=== PATIENT | male | born 1950 | race African-American/Black ===

== ENCOUNTER 2018-08-12 14:23 | Emergency (ER) | payer SELFPAY ==
[~2018-08-12] VITALS: Ht 172.7 cm; Wt 74.8 kg
[2018-08-12 14:23] VITALS: BP 145/75
--- NOTE | 2018-08-12 14:23 | NUR ---
ED Nurse Note: PT BROUGHT IN BY AMBULANCE FROM STREET. AOX4. PT C/O GENERALIZED WEAKNESS, WEAK GAIT, AND DYSURIA X 3 DAYS. PT ALSO C/O LEFT FOOT PAIN, 10/10 X 3 DAYS. PT DENIES TRAUMA OR INJURY. CIRCULATION AND SENSATION INTACT, CAP REFILL < 3 SECONDS, MUSCLE STRENGTH 5/5 OF BILATERAL FEET, SKIN DRY AND INTACT.
[2018-08-12] MEDS ORDERED: NKM (14:24)
--- NOTE | 2018-08-12 14:25 | NUR ---
ED Nurse Note: MINI COG STARTED AT TRIAGE. PT ASKED TO REMEMBER 3 WORDS: BANANA, CHAIR, AND SUNRISE. PT WAS ALSO ASKED TO DRAW 9 O'CLOCK ON MINI COG FORM AND WAS ABLE TO CORRECTLY DRAW THE TIME.
[2018-08-12] MEDS ORDERED: Ketorolac 30mg Inj IV ONE (14:30)
--- NOTE | 2018-08-12 14:30 | Emergency Room Report ---
History of Present Illness General Chief Complaint: Generalized Weakness Source: Patient, EMS Present Illness HPI Patient presents with generalized weakness. He states this is been worsening over the last few days, at least a week. He also has bilateral foot pain but worse in the left foot. He denies any trauma. He's not been eating the last few days. He states his been having a lot of discharge from his nose and occasionally vomiting up phlegm. He denies any chest pain or abdominal pain. Denies fevers or chills. EMS was called by a concerned passerby. He rates the pain in his left foot 10/10, aching both in the first metatarsal area and also across the dorsum. It does not radiate to the leg. Patient also complains about dysuria. He denies any hematuria. No headache, rashes, abdominal pain, change in bowels, back pain or other extremity pain. He states it has been several years since he was last admitted to hospital. He does not remember why. He denies depression and suicidal ideation. Allergies: Coded Allergies: No Known Allergies (Unverified , 08/12/18) Patient History Past Medical History: see triage record Social History: Reports: smoking, alcohol use; Denies: drug use Social History Narrative homeless Reviewed Nursing Documentation: PMH: Agreed; PSxH: Agreed Nursing Documentation-PMH Past Medical History: No Stated History Review of Systems All Other Systems: negative except mentioned in HPI Physical Exam Vital Signs Date Time Temp Pulse Resp B/P (MAP) Pulse Ox O2 Delivery O2 Flow Rate FiO2 08/12/18 14:19 98.2 74 16 150/77 99 Room Air Sp02 EP Interpretation: reviewed, normal General Appearance: well appearing, no apparent distress, GCS 15, other - Somewhat disheveled Head: normocephalic, atraumatic Eyes: bilateral eye PERRL, bilateral eye Scleral Injection ENT: moist mucus membranes - Poor dentition Neck: full range of motion, supple, no bony tend Respiratory: chest non-tender, lungs clear, normal breath sounds Cardiovascular #1: regular rate, rhythm Cardiovascular #2: 2+ radial (R) Gastrointestinal: normal inspection, normal bowel sounds, non tender, no mass, non-distended Musculoskeletal: back normal, normal range of motion, no calf tenderness, pelvis stable, other - bunion deformity bilat, worse L Neurologic: alert, oriented x3, grossly normal Psychiatric: mood/affect normal, no suicidal/homicidal ideation Skin: normal inspection, warm/dry, other - callous formation balls of feet, no significant erythema feet Medical Decision Making Diagnostic Impression: Primary Impression: Episode of generalized weakness Additional Impressions: Alcohol abuse UTI (urinary tract infection) Qualified Codes: N39.0 - Urinary tract infection, site not specified Foot pain, left ER Course Patient presents with weakness and foot pain. Differential includes brain bleed , electrolyte normality, acute myocardial infarction, occult infection amongst others. The patient will be evaluated with EKG, chest x-ray, CT the head and labs. He'll be treated with gentle IV hydration and a dose of Toradol. EKG without injury. Chest x-ray no infiltrates. CBC with normal white count slight anemia. CMP with mild renal insufficiency. Normal uric acid. Minimally elevated CPK. Blood alcohol 5. Urine tox positive for THC. Pyuria. CT of the head with involutional changes. Rocephin is given. Patient is reevaluated and states the pain is well controlled. Discussion of outpatient resources including clinics and shelters. Patient states that he wants to be discharged at this time. Patient stable for outpatient observation and treatment. Laboratory Tests Test 08/12/18 14:34 White Blood Count 5.0 K/UL (4.8-10.8) Red Blood Count 3.65 M/UL (4.70-6.10) L Hemoglobin 12.1 G/DL (14.2-18.0) L Hematocrit 37.1 % (42.0-52.0) L Mean Corpuscular Volume 102 FL (80-99) H Mean Corpuscular Hemoglobin 33.2 PG (27.0-31.0) H Mean Corpuscular Hemoglobin Concent 32.6 G/DL (32.0-36.0) Red Cell Distribution Width 11.3 % (11.6-14.8) L Platelet Count 263 K/UL (150-450) Mean Platelet Volume 6.3 FL (6.5-10.1) L Neutrophils (%) (Auto) 60.4 % (45.0-75.0) Lymphocytes (%) (Auto) 20.9 % (20.0-45.0) Monocytes (%) (Auto) 5.1 % (1.0-10.0) Eosinophils (%) (Auto) 11.2 % (0.0-3.0) H Basophils (%) (Auto) 2.4 % (0.0-2.0) H Prothrombin Time 10.4 SEC (9.30-11.50) Prothrombin Time INR 1.0 (0.9-1.1) PTT 27 SEC (23-33) Urine Color Yellow Urine Appearance Slightly cloudy Urine pH 5 (4.5-8.0) Urine Specific [place] 1.020 (1.005-1.035) Urine Protein 2+ (NEGATIVE) H Urine Glucose (UA) Negative (NEGATIVE) Urine Ketones Negative (NEGATIVE) Urine Blood 2+ (NEGATIVE) H Urine Nitrite Negative (NEGATIVE) Urine Bilirubin Negative (NEGATIVE) Urine Urobilinogen 1 MG/DL (0.0-1.0) H Urine Leukocyte Esterase 1+ (NEGATIVE) H Urine RBC 10-15 /HPF (0 - 0) H Urine WBC 20-30 /HPF (0 - 0) H Urine Squamous Epithelial Cells Few /LPF (NONE/OCC) Urine Bacteria Few /HPF (NONE) Sodium Level 142 MMOL/L (136-145) Potassium Level 3.9 MMOL/L (3.5-5.1) Chloride Level 105 MMOL/L (98-107) Carbon Dioxide Level 27 MMOL/L (21-32) Anion Gap 10 mmol/L (5-15) Blood Urea Nitrogen 25 mg/dL (7-18) H Creatinine 1.3 MG/DL (0.55-1.30) Estimate Glomerular Filtration Rate 54.6 mL/min (>60) Glucose Level 114 MG/DL (74-106) H Uric Acid 5.3 MG/DL (2.6-7.2) Calcium Level 9.0 MG/DL (8.5-10.1) Total Bilirubin 0.3 MG/DL (0.2-1.0) Aspartate Amino Transferase (AST) 30 U/L (15-37) Alanine Aminotransferase (ALT) 30 U/L (12-78) Alkaline Phosphatase 76 U/L (46-116) Total Creatine Kinase 582 U/L (26-308) H Troponin I 0.006 ng/mL (0.000-0.056) Pro-B-Type Natriuretic Peptide 147 pg/mL (0-125) H Total Protein 6.8 G/DL (6.4-8.2) Albumin 3.2 G/DL (3.4-5.0) L Globulin 3.6 g/dL Albumin/Globulin Ratio 0.9 (1.0-2.7) L Lipase 169 U/L (73-393) Urine Opiates Screen Negative (NEGATIVE) Urine Barbiturates Screen Negative (NEGATIVE) Phencyclidine (PCP) Screen Negative (NEGATIVE) Urine Amphetamines Screen Negative (NEGATIVE) Urine Benzodiazepines Screen Negative (NEGATIVE) Urine Cocaine Screen Negative (NEGATIVE) Urine Marijuana (THC) Screen Positive (NEGATIVE) H Serum Alcohol 5 mg/dL EKG Diagnostic Results Rate: normal Rhythm: NSR ST Segments: no acute changes - + u waves Rhythm Strip Diag. Results EP Interpretation: yes Rhythm: NSR, no PVC's, no ectopy Chest X-Ray Diagnostic Results Chest X-Ray Diagnostic Results : Chest X-Ray Ordered: Yes # of Views/Limited/Complete: 1 View Indication: Other EP Interpretation: Yes Interpretation: no consolidation, no effusion, no pneumothorax Impression: No acute disease Electronically Signed by: Electronically signed by Honorio Deshpande MD Other X-Ray Diagnostic Results Other X-Ray Diagnostic Results : X-Ray ordered: Left foot # of Views/Limited Vs Complete: 3 View Indication: Pain EP Interpretation: Yes Interpretation: no dislocation, no fractures, other - Bunion deformity and degenerative joint disease Impression: Other Electronically Signed by: Electronically signed by Honorio Deshpande MD CT/MRI/US Diagnostic Results CT/MRI/US Diagnostic Results : Imaging Test Ordered: head Impression involutional changes, sinus disease Last Vital Signs Date Time Temp Pulse Resp B/P (MAP) Pulse Ox O2 Delivery O2 Flow Rate FiO2 08/12/18 16:59 98.6 70 14 124/78 98 Room Air Status: improved Disposition: HOME, SELF-CARE Condition: Improved Scripts Ibuprofen* (MOTRIN*) 600 Mg Tablet 600 MG ORAL Q6H PRN for For Pain, #20 TAB Prov: Hoonrio Deshpande MD 08/12/18 Nitrofurantoin Monohyd/M-Cryst* (MACROBID 100 MG*) 100 Mg Capsule 100 MG ORAL EVERY 12 HOURS, #14 CAP Prov: Honorio Deshpande MD 08/12/18 Honorio Deshpande MD Aug 12, 2018 14:30
--- NOTE | 2018-08-12 14:30 | NUR ---
ED Nurse Note: PT'S CLOTHING ASSESSED FOR WEATHER APPROPRIATENESS. PT IS FULLY CLOTHED AND CLOTHING IS APPROPRIATE FOR WEATHER CONDITIONS. PT OFFERED AND GIVEN SANDWICHES, JUICE, AND WATER.
--- NOTE | 2018-08-12 14:51 | NUR ---
ED Nurse Note: pt taken to get CT
[2018-08-12 15:04] LABS: APPEARANCE,URINE SLIGHTLY CLOUDY; BASOPHILS % (AUTO) 2.4 % (0.0-2.0); BILIRUBIN, URINE NEGATIVE (NEGATIVE); EOSINOPHILS % (AUTO) 11.2 % (0.0-3.0); GLUCOSE, URINE (UA) NEGATIVE (NEGATIVE); HEMATOCRIT 37.1 % (42.0-52.0); HEMOGLOBIN 12.1 G/DL (14.2-18.0); KETONES,URINE NEGATIVE (NEGATIVE); LYMPHOCYTES % (AUTO) 20.9 % (20.0-45.0); MEAN CORPUSCULAR VOLUME 102 FL (80-99); MONOCYTES % (AUTO) 5.1 % (1.0-10.0); NEUTROPHILS % (AUTO) 60.4 % (45.0-75.0); NITRITE,URINE NEGATIVE (NEGATIVE); PH,URINE 5 (4.5-8.0); PLATELET COUNT 263 K/UL (150-450); PROTEIN,URINE 2+ (NEGATIVE); RED BLOOD COUNT 3.65 M/UL (4.70-6.10); RED CELL DISTRIBUTION WIDTH 11.3 % (11.6-14.8); UROBILINOGEN,URINE 1 MG/DL (0.0-1.0)
[2018-08-12 15:07] LABS: COLOR,URINE YELLOW
[2018-08-12 15:11] LABS: ANION GAP 10 mmol/L (5-15); BLOOD UREA NITROGEN 25 mg/dL (7-18); CARBON DIOXIDE 27 MMOL/L (21-32); CHLORIDE 105 MMOL/L (98-107); CREATININE 1.3 MG/DL (0.55-1.30); POTASSIUM 3.9 MMOL/L (3.5-5.1); SODIUM 142 MMOL/L (136-145)
[2018-08-12 15:22] LABS: ALANINE AMINOTRANSFERASE 30 U/L (12-78); ALBUMIN 3.2 G/DL (3.4-5.0); ALBUMIN/GLOBULIN RATIO 0.9 (1.0-2.7); ALKALINE PHOSPHATASE 76 U/L (46-116); ASPARTATE AMINO TRANSFERASE 30 U/L (15-37); BILIRUBIN,TOTAL 0.3 MG/DL (0.2-1.0); CREATINE KINASE 582 U/L (26-308)
[2018-08-12 15:24] LABS: LEUKOCYTE ESTERASE ,URINE 1+ (NEGATIVE)
[2018-08-12] MEDS ORDERED: cefTRIAXone 1 GM in NS 55 ML IVPB ONE (16:15)
[2018-08-12] MEDS ORDERED: IBUPROFEN600 MG ORAL (16:37)
[2018-08-12] MEDS ORDERED: NITROFURANTOIN100 M2 ORAL (16:37)
--- NOTE | 2018-08-12 16:41 | NUR ---
ED Nurse Note: PT ASKED WHERE HE IS GOING TO GO AFTER DISCHARGE. PT STATES HE WILL GO BACK TO WHERE HE WAS PICKED UP BY AMBULANCE. PT WAS OFFERED HELP WITH PLACEMENT FOR SHELTERS. PT REFUSED. PT WAS GIVEN RESOURCES INCLUDING LISTS OF SHELTERS AVAILABLE IF HE CHANGED HIS MIND. PT WAS ALSO GIVEN A LIST OF FREE CLINICS AVAILABLE FOR HIM TO FOLLOW UP. PT VERBALIZES UNDERSTANDING AND SAYS HE WILL LOOK INTO RESOURCES BUT DOES NOT NEED ASSISTANCE AT THIS TIME. PT ASKED HOW HE IS GOING TO GO BACK TO WHERE HE CAME FROM AND ANSWERED THAT HE WILL FIGURE IT OUT ON HIS OWN. PT MADE AWARE OF AVAILABLE ASSISTANCE FROM THE HOSPITAL FOR TRANSPORTATION INCLUDING TAXI VOUCHERS OR TAP CARDS. PT REFUSED AND INSISTS ON RETURNING BACK ON HIS OWN.
--- NOTE | 2018-08-12 16:58 | NUR ---
ED Nurse Note: PT LAYING PEACEFULLY IN BED IN NAD. AOX4. PRESCRIPTIONS AND DISCHARGE PAPERWORK EXPLAINED TO PT. PT VERBALIZES UNDERSTANDING AND ALL QUESTIONS WERE ANSWERED. PRESCRIPTIONS AND DISCHARGE PAPERWORK GIVEN TO PT, IV AND ID WRISTBAND REMOVED. PT WAS GIVEN MORE FOOD, JUICE AND WATER. PT ASKED AGAIN IF HE REQUIRES ANY ASSISTANCE WITH FINDING PLACEMENT OR WITH TRANSPORTATION. PT REFUSES ONCE AGAIN. PT WALKED OUT OF ER WITH STEADY GAIT AND ALL BELONGINGS.
[2018-08-12 16:59] VITALS: BP 124/78
--- NOTE | 2018-08-13 08:16 | Diagnostic Imaging Report ---
Indication: Altered mental status, weakness Technique: Continuous helical CT scanning of the head was performed utilizing automated exposure control without intravenous contrast material. Axial and coronal reconstructions were obtained. Comparison: None CT dose: Total DLP 1435.91 mGycm; CTDI vol 70.38 mGy Findings: There is no acute intracranial hemorrhage, mass effect or cortical edema. No shift of midline structures. Empty appearing sella. The ventricles, cisterns and sulci are within normal limits for age. Periventricular hypoattenuation is seen, a nonspecific finding most commonly related to sequela of chronic microvascular ischemia. There are atherosclerotic vascular calcifications. Mastoid air cells are clear. There is near complete opacification of the right maxillary sinus. There is bony thickening. There is opacification of some ethmoid air cells as well aerated is no depressed calvarial fracture. No scalp hematoma. Nonspecific calcifications noted in the skin of the forehead. IMPRESSION: No evidence of acute intracranial hemorrhage, mass effect or cortical edema. MRI may be obtained for more sensitive evaluation as clinically indicated. Chronic and involutional changes. Likely acute on chronic paranasal sinus disease. Additional findings as above. This corresponds with the statrad preliminary report. The CT scanner at [facility] is accredited by the [employer] and the scans are performed using protocols designed to limit radiation exposure to as low as reasonably achievable to attain images of sufficient resolution adequate for diagnostic evaluation.
--- NOTE | 2018-08-13 12:03 | Diagnostic Imaging Report ---
Indication: Pain Technique: XRAY Foot Complete L Comparison: None Findings: Bone mineralization within normal limits. There is no evidence of acute fracture. Lisfranc alignment of the foot is preserved. There is degenerative change at the first metatarsophalangeal joint with mild hallux valgus. Degenerative changes of the sesamoids also noted. There is a small erosion in the head of the first metatarsal. No ankle joint effusion. Small plantar calcaneal enthesophyte. No radiopaque foreign body. Impression: No evidence of acute fracture or dislocation. Mild hallux valgus with degenerative changes of the first tarsal phalangeal joint. Small bone erosion involving the head of the first metatarsal. May also be degenerative in etiology. Inflammatory arthropathy not excludable.
--- NOTE | 2018-08-13 12:04 | Diagnostic Imaging Report ---
Indication: Chest pain Technique: XRAY Chest 1v Comparison: None Findings: Heart size are within normal limits given technique. There is no focal consolidation, pneumothorax or pleural effusion. Osseous structures demonstrate no acute abnormality. Impression: No radiographic evidence of acute cardiopulmonary disease.
--- NOTE | 2018-08-23 14:27 | Cardiology Report ---
APPROVED REPORT EKG Measurement Heart [id number] Normal sinus rhythm Septal infarct, age undetermined Abnormal ECG
== END 2018-08-12 17:01 | disposition home or self-care (01) ==
LOC: EDBD 14:23 → EMR 15:19
DX: R53.1 Weakness (principal); F10.10 Alcohol abuse, uncomplicated; N39.0 Urinary tract infection, site not specified; M79.672 Pain in left foot
CPT/HCPCS: 36415; 70450; 71045; 73630; 80053; 80307; 81003; 82550; 83690; 83880; 84484; 84550; 85025; 85610; 85730; 87086; 93005; 96361; 96365; 96375; 99284; G0480; J0696; J1885; 80329